=== PATIENT | female | born 1985 | race Caucasian/White ===

== ENCOUNTER 2023-12-01 17:12 | Emergency (ER) | payer OTHER ==
[~2023-12-01] VITALS: Ht 160 cm; Wt 63.5 kg
[2023-12-01 17:16] VITALS: BP 151/87; PULSE 77; RESP 16; TEMP 98.2; O2SAT 100
[2023-12-01 18:00] LABS: BASOPHILS # (AUTO) 0.1 K/uL (0.00-0.22); BASOPHILS % (AUTO) 1.2 % (0.0-2.0); EOSINOPHILS # (AUTO) 0.1 K/uL (0-0.4); EOSINOPHILS % (AUTO) 1.6 % (0.0-4.0); HEMATOCRIT 42.5 % (36-48); HEMOGLOBIN 14.3 g/dL (12.0-16.0); LYMPHOCYTES # (AUTO) 2.2 K/uL (2.5-16.5); MEAN CORPUSCULAR HEMOGLOBIN 30 pg (27-31); MEAN CORPUSCULAR HGB CONC 34 g/dL (33-37); MEAN CORPUSCULAR VOLUME 88.4 fL (80-94); MONOCYTES # (AUTO) 0.6 K/uL (0.8-1.0); MONOCYTES % (AUTO) 6.7 % (1.7-9.3); NEUTROPHILS # (AUTO) 6.1 K/uL (1.8-7.7); NEUTROPHILS % (AUTO) 66.5 % (42.2-75.2); PLATELET COUNT (AUTO) 354 K/uL (140-450); RED BLOOD CELL COUNT(AUTO) 4.81 MIL/uL (4.20-5.40); RED CELL DISTRIBUTION WIDTH 15.3 % (11.6-13.7); WHITE BLOOD COUNT (AUTO) 9.1 K/uL (4.8-10.8)
[2023-12-01 18:15] LABS: CALCIUM 9.3 mg/dL (8.5-10.1); CARBON DIOXIDE 31.4 mmol/L (21-32); CREATININE 1.1 mg/dL (0.6-1.3); POTASSIUM 3.4 mmol/L (3.5-5.1)
[2023-12-01 18:19] LABS: INR 0.96 (0.8-1.2); PARTIAL THROMBOPLASTIN TIME 32.7 secs (22-35.6); PROTHROMBIN TIME 10.1 secs (10.8-13.4)
[2023-12-01 18:36] LABS: ALBUMIN 3.8 g/dL (3.4-5.0); BILIRUBIN,DIRECT 0.1 mg/dL (0.0-0.3); FREE T4 (FREE THYROXINE) 0.95 ng/dL (0.76-1.46); THYROID STIMULATING HORMONE 2.08 uIU/mL (0.34-3.74); TOTAL BILIRUBIN 0.3 mg/dL (0.0-1.0); TOTAL PROTEIN, SERUM 9.6 g/dL (6.4-8.2)
[2023-12-01 19:37] VITALS: BP 116/72; PULSE 87; RESP 16; TEMP 98; O2SAT 99
== END 2023-12-01 19:38 | disposition home or self-care (01) ==
LOC: MED 17:12
DX: S00.83XA Contusion of other part of head, initial encounter (principal); L95.9 Vasculitis limited to the skin, unspecified; R53.1 Weakness; Z88.8 Allergy status to other drugs, medicaments and biological substances; Z79.899 Other long term (current) drug therapy; Z98.84 Bariatric surgery status; X58.XXXA Exposure to other specified factors, initial encounter; Y93.89 Activity, other specified; Y92.89 Other specified places as the place of occurrence of the external cause; Y99.8 Other external cause status
CPT/HCPCS: 36415; 80048; 80076; 83690; 84439; 84443; 84702; 85025; 85610; 85730; 99283